=== PATIENT | female | born 1985 | race Caucasian/White ===

== ENCOUNTER 2021-10-09 08:00 | Outpatient (CLI) | payer OTHER | END 2021-10-09 23:59 | disposition home or self-care (01) | LOC: LAB.N 08:00 | PROVIDERS: ATTEND Nurse Practitioner Family | DX: B34.9 Viral infection, unspecified (principal); Z20.822 Contact with and (suspected) exposure to COVID-19 ==

== ENCOUNTER 2022-08-19 08:00 | Outpatient (CLI) | payer OTHER | END 2022-08-19 23:59 | disposition home or self-care (01) | LOC: LAB.N 08:00 | PROVIDERS: ATTEND Specialist | DX: J02.9 Acute pharyngitis, unspecified (principal) | CPT/HCPCS: 87070 ==

== ENCOUNTER 2022-09-02 07:23 | Outpatient (CLI) | payer OTHER ==
[2022-09-02 10:10] LABS: ESTIMATED AVERAGE GLUCOSE 100 mg/dL (70-100); HEMOGLOBIN A1c% 5.1 % (4.27-6.07)
[2022-09-02 17:59] LABS: THYROID STIMULATING HORMONE 3.61 uIU/mL (0.34-5.60)
[2022-09-02 18:04] LABS: PROLACTIN 16.22 ng/mL
[2022-09-02 18:26] LABS: FOLLICLE STIMULATING HORMONE 5.08 mIU/mL
[2022-09-02 18:27] LABS: LUTEINIZING HORMONE 7.5 mIU/mL
[2022-09-03 07:10] LABS: ESTRADIOL 41.7 pg/mL (.); PROGESTERONE 0.4 ng/mL (.)
[2022-09-03 17:08] LABS: SEX HORM BINDING GLOB SERUM 86.8 nmol/L (24.6-122.0); TESTOSTERONE 12 ng/dL (8-60)
[2022-09-06 18:06] LABS: ANTINUCLEAR ANTIBODIES IFA Negative (.)
== END 2022-09-02 07:24 | disposition home or self-care (01) ==
LOC: LAB 07:23
PROVIDERS: ATTEND Nurse Practitioner
DX: N92.4 Excessive bleeding in the premenopausal period (principal); Z13.1 Encounter for screening for diabetes mellitus
CPT/HCPCS: 36415; 82397; 82533; 82627; 82670; 83001; 83002; 83036; 83498; 84144; 84146; 84270; 84402; 84403; 84443; 86038